=== PATIENT | female | born 1955 | race Caucasian/White ===

== ENCOUNTER 2021-03-24 13:43 | Emergency (ER) | payer MEDICARE, MEDICAID, SELFPAY ==
[2021-03-24 14:25] VITALS: BP 143/83; PULSE 60; RESP 18; TEMP 37.2; O2SAT 97; BMI 42.4
[2021-03-24 16:00] VITALS: BP 122/90; PULSE 62; RESP 98; O2SAT 96
[2021-03-24 17:00] VITALS: O2SAT 97
--- NOTE | 2021-03-24 17:14 | XRR_ITS ---
PROCEDURE INFORMATION: Exam: XR Chest Exam date and time: 03/24/2021 5:14 PM Age: 65 years old Clinical indication: Cough TECHNIQUE: Imaging protocol: XR of the chest. Views: 1 view. COMPARISON: CT Up Extremity wo LEFT* [id number] 06/07/2019 1:22 PM FINDINGS: Lungs: Focal airspace opacity in the peripheral right lung base. The left lung is clear. Pleural spaces: Unremarkable. No pleural effusion. No pneumothorax. Heart/Mediastinum: Unremarkable. No cardiomegaly. Bones/joints: Unremarkable. XR/XR chest 1V portable [id number] IMPRESSION: 1. Pneumonia versus atelectasis in the peripheral right lung base.
--- NOTE | 2021-03-24 17:19 | ED_ITS ---
HPI - COVID General: Chief Complaint: COVID symptoms Stated Complaint: SOB; COVID + Time Seen by Provider: 03/24/21 17:13 Triage information: Has fever, cough or shortness of breath . Exposure to COVID + person last 14 days History of Present Illness: HPI Narrative: Patient brought in Covid positive. Brought in by ambulance. Sent because patient says her daughter said she has grandkids at home and that she did not want her to be there with her. Said she is Covid positive. Patient has muscle aches has no shortness of breath. Has no diarrhea has been slightly nauseous. MD complaint: known COVID positive Prior covid testing: yes, results known COVID 19 common symptoms: positive cough, body aches and nausea; negative non- productive cough, productive cough, dyspnea, headache(s), throat pain or nasal congestion COVID 19 other sytmptoms: negative chest pain Onset (ago): day(s) Severity: mild COVID Results: No Data to Display Review of Systems Const: Reports: body aches Eyes: Denies: change in vision or blurry vision ENMT: Denies: throat pain or nasal congestion Card: Denies: chest pain or dyspnea on exertion Resp: Denies: dyspnea, productive cough or non-productive cough GI: Reports: nausea Musc: Denies: extremity pain Skin/Breast: Denies: rash Neuro: Denies: headache(s) Psych: Denies: anxiety or depression Festus/Lymph: Denies: easy bruising Physical Exam Const: COMMON NORMALS: no acute distress, average body habitus and patient oriented x3 HENMT: COMMON NORMALS: normocephalic HEAD & SCALP: normal to inspection and normocephalic FACE & SINUS: normal facial exam Eye: COMMON NORMALS: conjunctivae normal GENERAL EYE: appearance normal, both eyes and all related structures CONJUNCTIVA: Yes conjunctivae normal Neck/C-Spine: COMMON NORMALS: no JVD Chest: COMMONS NORMALS: normal inspection of the chest Resp: COMMON NORMALS: normal respiratory effort and clear to auscultation bilaterally AUSCULTATION: clear to auscultation bilaterally Cardio: COMMON NORMALS: no JVD, regular rate and regular rhythm RATE: regular rate RHYTHM: regular rhythm GI: COMMON NORMALS: Normal to inspection, nondistended, normoactive bowel sounds present Extremity: COMMON NORMALS: normal to inspection and full ROM Neuro: COMMON NORMALS: patient oriented x3 Course Vital Signs: Vital signs: Vital Signs Temperature 98.9 F 03/24/21 14:25 Pulse Rate 89 03/24/21 18:00 Respiratory Rate 18 03/24/21 18:00 Blood Pressure 159/75 03/24/21 18:00 Pulse Oximetry 94 03/24/21 18:00 MDM - COVID MDM Narrative: Medical decision making narrative: Vital signs are stable. X- ray was negative. Patient was in no distress at all. Was pleasant on visit with. Patient said she did not feel bad at all she was here because her daughter did not want her at home. COVID Results: No Data to Display Discharge Plan Discharge Patient Disposition: Home Clinical Impression: COVID-19 Condition: Stable Discharge Orders: Discharge ED (Routine); Ordered 03/24/21 Ordered By: Leonardo eFrro Discharge Diet: Usual diet Discharge Activity: Increase activity as tolerated Patient Instructions: Viral Syndrome (ED) Activity Restrictions/Additional Instructions: Follow-up with medical provider as directed. Take medications as prescribed. Return to the ER or your medical provider if condition worsens. Please read and understand discharge instructions. If any questions ask please. Coding Level of Care Code ED Radio Interference Supervisor for Kobe Fwemigdio Exam Comprehensive
[2021-03-24 18:00] VITALS: BP 159/75; PULSE 89; RESP 18; O2SAT 94
--- NOTE | 2021-03-24 18:18 | PC.NURSE ---
spoke with daughter converning the patient coming back home. She is angry and confrontational and hung up both times I spoke with her. She is aware that her mother will be returning home by Medicaid ride which may take between 1 and 3 hours. She states that if her mother leaves again she cannot return.
== END 2021-03-24 18:30 | disposition home or self-care (01) ==
PROVIDERS: Emergency Provider Nurse Practitioner Family
DX: U07.1 COVID-19 (principal)
CPT/HCPCS: 71045; 99282

== ENCOUNTER → 2021-09-16 13:05 | Outpatient (BNVA) | payer MEDICARE, MEDICAID, SELFPAY | PROVIDERS: PCP Nurse Practitioner Family; Visit Provider Internal Medicine | DX: E78.5 Hyperlipidemia, unspecified (principal); R06.02 Shortness of breath; I48.91 Unspecified atrial fibrillation | CPT/HCPCS: 80048; 83880 ==

== ENCOUNTER → 2021-09-17 13:35 | Outpatient (BNVA) | payer MEDICARE, MEDICAID, SELFPAY | PROVIDERS: PCP Nurse Practitioner Family; Referring Provider Nurse Practitioner Family; Visit Provider Internal Medicine | DX: E11.42 Type 2 diabetes mellitus with diabetic polyneuropathy (principal); E78.5 Hyperlipidemia, unspecified; Z79.4 Long term (current) use of insulin; Z87.891 Personal history of nicotine dependence | CPT/HCPCS: 99204 ==

== ENCOUNTER 2022-01-09 08:52 | Outpatient (CLI) | payer MEDICARE, MEDICAID, SELFPAY ==
--- NOTE | 2022-01-09 09:15 | USCV_ITS ---
Vicki Tolbert Age: 66 Gender: F : 1955 Exam Date: 01/09/2022 09:29 Ordering Phys: Humberto Jaquez M.D ([email or web address]) Technologist: Prosper Braun [place] [facility] [place] sob BP: 112 / 78 HR: Rhythm: Other Technical Quality: Adequate MEASUREMENTS (Male / Female) Normal Values 2D ECHO LV Diastolic Diameter PLAX 4.4 cm 4.2 - 5.9 / 3.9 - 5.3 cm LV Systolic Diameter PLAX 2.7 cm IVS Diastolic Thickness 1.1 cm 0.6 - 1.0 / 0.6 - 0.9 cm IVS Systolic Thickness 1.0 cm LVPW Diastolic Thickness 1.6 cm 0.6 - 1.0 / 0.6 - 0.9 cm LVPW Systolic Thickness 2.1 cm LVOT Diameter 2.0 cm LV Ejection Fraction 2D Teich 68.6 % LV Ejection Fraction MOD 2C 70.0 % LV Ejection Fraction 2C AL 71.0 % LA Diameter 4.1 cm LA Width 3.8 cm LA Height 5.8 cm RA Width 4.0 cm RA Height 5.1 cm Aorta at Sinotubular Diameter 2.1 cm IVC Diameter 2.6 cm M-MODE Aortic Annulus Diameter 2.6 cm LA Ao Ratio MM 1.7 MV E Point Septal Separation 0.8 cm DOPPLER AV Peak Velocity 274.0 cm/s LVOT Peak Velocity 81.0 cm/s AV Area Cont Eq vti 1.0 cm squared AV Area Cont Eq pk 1.0 cm squared MV Area PHT 5.1 cm squared Mitral E to A Ratio 2.8 MV E' Velocity 122.0 cm/s TR Peak Velocity 323.3 cm/s TR Peak Gradient 41.8 mmHg TR Mean Velocity 245.0 cm/s TR Mean Gradient 26.9 mmHg TR Velocity Time Integral 107.2 cm Right Atrial Pressure 8.0 mmHg Pulmonary Artery Systolic Pressu 49.8 mmHg RV Acceleration Time 0.1 s RV Ejection Time 0.4 s RV AcT/ET 0.3 FINDINGS Left Ventricle Normal left ventricular size. LV systolic function is normal with EF of 55-60%. No regional wall motion abnormalities. Diastolic function is abnormal Right Ventricle The right ventricle is normal in size and function. Right Atrium The right atrium is normal in size. Left Atrium The left atrium is dilated Mitral Valve Structurally normal mitral valve without significant stenosis or prolapse. There is mild mitral regurgitation. Aortic Valve Aortic valve is thickened and calcified. By continuity question, aortic valve area is 1 cm squared and mean gradient is 14 mmHg. This is consistent with moderate aortic stenosis. Mild aortic regurgitation is seen. Tricuspid Valve Structurally normal tricuspid valve without significant stenosis. Mild tricuspid regurgitation. RVSP is 45-50mmHg. This is consistent with moderate pulmonary hypertension Pulmonic Valve Structurally normal pulmonic valve without significant stenosis. There is mild pulmonic regurgitation. Pericardium Normal pericardium without effusion. Aorta Normal ascending aorta dimension. CONCLUSIONS LV systolic function is normal with EF of 55-60% Diastolic function is abnormal Left atrial dilation Mild mitral regurgitation Aortic valve is thickened and calcified. By continuity question, aortic valve area is 1 cm squared and mean gradient is 14 mmHg. This is consistent with moderate aortic stenosis. Mild aortic regurgitation is seen. Mild tricuspid regurgitation. RVSP is 45-50mmHg. This is consistent with moderate pulmonary hypertension Mild pulmonic regurgitation No comparison studies are available Humberto Jaquez MD (Electronically Signed) Final Date: 18 Jan 2022 20:29 S
== END 2022-01-09 08:53 | disposition home or self-care (01) ==
LOC: RAD 08:53
PROVIDERS: PCP Family Medicine; Visit Provider Internal Medicine
DX: R06.02 Shortness of breath (principal); R07.9 Chest pain, unspecified
CPT/HCPCS: 93306

== ENCOUNTER 2023-07-14 20:50 | Emergency (ER) | payer MEDICARE, MEDICAID, SELFPAY ==
[2023-07-14 20:51] VITALS: BP 139/58; PULSE 71; RESP 19; O2SAT 92; BMI 39.9
[2023-07-14] MEDS: metoclopramide 5 mg/mL SDV 2 mL 10 MG IVP (21:10)
[2023-07-14] MEDS: ondansetron 2 mg/ML SDV 2 mL 8 MG IVP (21:11)
[2023-07-14 21:20] LABS: Basophils # 0.1 10^3/uL (0.0-0.1); Basophils % 0.7 %; Eosinophils # 0.2 10^3/uL (0.0-0.8); Eosinophils % 1.4 %; Hematocrit 26.9 % (36-47); Lymphocytes # 1.3 10^3/uL (0.8-4.8); Lymphocytes % 11.3 %; Mean Corpuscular HGB Conc 29.7 g/dL (30-55); Mean Corpuscular Hemoglobin 24.8 pg (27-33); Mean Corpuscular Volume 83.5 fl (85-98); Mean Platelet Volume 9.8 fL (7.4-10.4); Monocytes # 0.4 10^3/uL (0.2-0.9); Monocytes % 3.9 %; Neutrophils # 9.29 10^3/uL (1.8-7.7); Neutrophils % 82.3 %; Nucleated Red Blood Cells % 0 %; Platelet Count 278 10^3/cmm (157-399); Red Blood Count 3.22 10^6/uL (3.85-5.65); Red Cell Distribution Width 19.6 % (12.1-15.1)
[2023-07-14 21:23] VITALS: BP 139/58; PULSE 69; RESP 23; O2SAT 93
[2023-07-14 21:37] LABS: Alanine Aminotransferase 12 U/L (0-33); Albumin Level 3.6 g/dL (3.5-5.2); Alkaline Phosphatase 123 U/L (35-105); Anion Gap 20.3 (5-19); Aspartate Amino Transferase 15 U/L (0-32); Blood Urea Nitrogen 35 mg/dL (8-23); Calcium 9.1 mg/dL (8.5-10.5); Carbon Dioxide 21 mmol/L (22-29); Chloride 100 mmol/L (98-107); Globulin 3.7 g/dL (1.3-4.6); Glomerular Filtration Rate 24.6 mL/min (90-130); Glucose 160 mg/dL (65-115); Lipase 63 U/L (13-60); Magnesium 2.2 mg/dL (1.7-2.3); Osmolality Calculated 295 mOsm/kg (285-295); Potassium 4.3 mmol/L (3.5-5.1); Sodium 137 mmol/L (136-145); Total Bilirubin 0.6 mg/dL (0.15-1.2); Total Protein 7.3 g/dL (6.6-8.7)
[2023-07-14 21:45] LABS: Add Urine Microscopic? YES; Bilirubin Urine Neg (Negative); Blood Urine 2+ (Negative); Glucose Urine UA 4+ (Normal); Ketones Urine Negative (Negative); Leukocyte Esterase Urine Negative (Negative); Nitrate Urine Negative (Negative); Protein Urine 1+ (Negative); Urine Appearance Clear (CLEAR); Urine Color Yellow (Yellow); Urobilinogen Urine Neg (Negative); pH Urine 5 (5-7)
[2023-07-14 21:46] LABS: Add Urine Culture? No; Amorphous Sediment Urine 1+ /hpf; Bacteria Urine 1+ /hpf; Mucus Urine 1+ /hpf; RBC Urine 0-4 /hpf (0-2); Squamous Epithelial Cell Urine 0-4 /hpf (0-5)
[2023-07-14] MEDS: sodium chloride 0.9% 1,000 ML 999 ML IV (21:52)
--- NOTE | 2023-07-14 21:53 | CTR_ITS ---
PROCEDURE INFORMATION: Exam: CT Abdomen And Pelvis Without Contrast Exam date and time: 07/14/2023 10:01 PM Age: 68 years old Clinical indication: Other: Hematuria; Additional info: N/v, hematuria, TECHNIQUE: Imaging protocol: Computed tomography of the abdomen and pelvis without contrast. Radiation optimization: All CT scans at this facility use at least one of these dose optimization techniques: automated exposure control; mA and/or kV adjustment per patient size (includes targeted exams where dose is matched to clinical indication); or iterative reconstruction. REPORTING DATA: Count of CT and Cardiac NM exams in prior 12 months: This patient has received 0 known CTs and 0 known cardiac nuclear medicine studies in the 12 months prior to the current study. COMPARISON: CR XR chest 1V portable [id number] 03/24/2021 5:17 PM RADIATION DOSE METRICS: Total DLP (mGy-cm): 1207.29 FINDINGS: Lungs: Small right pleural effusion. Right lung base atelectasis or scarring. Heart: The heart is mildly enlarged. Liver: Liver is large. No focal mass. Gallbladder and bile ducts: Absent gallbladder. Pancreas: Unremarkable with no suspicious mass. No ductal dilation. Spleen: The spleen is not enlarged. No suspicious mass is noted. Adrenal glands: Normal. No mass. Kidneys and ureters: No solid renal mass or hydronephrosis. Equivocal left upper renal hemorrhagic cyst. Stomach and bowel: Few tiny duodenal diverticula. Left colon is collapsed and not well studied. No small bowel obstruction, abscess or free air. Appendix: No evidence of appendicitis. Intraperitoneal space: Unremarkable. No free air. No suspicious fluid collection. Vasculature: Advanced diffuse vascular calcification noted. Lymph nodes: No enlarged lymph nodes. Urinary bladder: There is mild bladder wall thickening. Reproductive: Atrophic uterus. Bones/joints: Moderate spine DJD. Soft tissues: Tiny fat umbilical hernia. CT/CT abdomen pelvis wo con [id number] IMPRESSION: 1. No obstructive urolithiasis or obvious renal mass lesion noted. There may be mild cystitis. If hematuria persists, recommend CT urogram. 2. Multiple chronic findings above. COMMENTS: Consistent with the [employer]'s Incidental Findings Committee white paper (J Am Bassam Radiol 2018): Any incidental renal lesion less than 1 cm or classified as too small to characterize, or any incidental cystic renal lesion characterized as simple-appearing, is likely benign. No follow-up imaging is recommended for these lesions per consensus recommendations based on imaging criteria.
--- NOTE | 2023-07-14 21:56 | ED_ITS ---
HPI - Nausea/Vomiting/Diarrhea General: Chief complaint: Nausea/Vomiting/Diarrhea Stated complaint: N/V Time Seen by Provider: 07/14/23 20:53 History of Present Illness: Patient presents today to the ER [facility] with complaints of nausea vomiting starting today. Patient also complains of a productive cough and headache started 3 days ago. Patient states she coughs up white stuff. Patient is actively retching she states she is vomiting multiple times a day and does usually get sick in her stomach. Patient denies any fever abdominal pain or diarrhea. Patient normally wears oxygen at 2 to 3 L per nasal cannula which she is currently on 2 L satting in the mid 90s. Review of Systems General: Reports: 10 or more systems reviewed and unremarkable except in HPI and below PFSH ED PFSH: Medical History Arthritis Chronic renal failure COPD (chronic obstructive pulmonary disease) Depressive disorder Essential hypertension Gastroenteritis Hyperlipemia Neuropathy Type 2 diabetes mellitus Surgical History H/O: hysterectomy History of cholecystectomy Family History Mother Hypertension Social History Smoking and tobacco/nicotine status: former use of tobacco/nicotine Alcohol intake: never Substance/Drug Use: never Physical Exam Const: COMMON NORMALS: no acute distress, average body habitus, patient oriented x3, no limitations, healthy appearing, alert and well nourished HENMT: COMMON NORMALS: normocephalic, atraumatic, hearing grossly normal bilaterally, external ears normal, Normal external nose present, moist oral mucous membranes and oropharynx normal HEAD & SCALP: normocephalic and atraumatic NOSE: Normal external nose present EXTERNAL EAR: Yes external ears normal Neck/C-Spine: COMMON NORMALS: no JVD Chest: COMMONS NORMALS: normal inspection of the chest and normal palpation of entire chest wall Resp: COMMON NORMALS: normal respiratory effort, No retractions, No use of accessory muscles and clear to auscultation bilaterally AUSCULTATION: clear to auscultation bilaterally Cardio: COMMON NORMALS: no JVD, regular rate, regular rhythm, S1 normal heart sound present, S2 normal heart sound present, No gallops present (Cardio), No c licks present (Cardio), No murmurs present (Cardio) and No rub (Cardio) RATE: regular rate RHYTHM: regular rhythm HEART SOUNDS: S1 normal heart sound present and S2 normal heart sound present GI: COMMON NORMALS: Normal to inspection, nondistended, normoactive bowel sounds present, Soft to palpation, No hepatosplenomegaly present and no masses; negative for non-tender (Mildly diffusely tender) PALPATION: Yes Soft to palpation and Yes No hepatosplenomegaly present Neuro: COMMON NORMALS: patient oriented x3 SENSORIUM/ORIENTATION: Yes alert Course Vital Signs: Vital signs: Vital Signs Pulse Rate 72 07/14/23 22:52 Respiratory Rate 20 H 07/14/23 22:52 Blood Pressure 113/56 07/14/23 22:52 Pulse Oximetry 91 07/14/23 22:52 Oxygen Delivery Me thod Nasal Cannula 07/14/23 22:52 Oxygen Flow Rate 2 07/14/23 22:52 MDM - Nausea/Vomiting/Diarrhea Medical Decision Making Patient was given additional 8 mg Zofran and 10 of Reglan as well as 1 L normal saline while she was here. Patient did not vomit after she was given this medicine. Lab work was obtained which showed a hemoglobin of 8.0 hematocrit 26.9 upon talking to the nurse who talked to the daughter this is where the patient was at during her last hospital stay. Patient also had elevated BUN/creatinine at 35 and 2.0. Of abdomen pelvis CT scan was essentially benign. UA showed hematuria and 4+ glucose.. Is felt patient is stable at this time and has improved and will be discharged [facility] for further evaluation and treatment. Differential Diagnosis Likely gastroenteritis and dehydration; Unlikely traveler's diarrhea, food poisoning, clostridium difficile infection or drug-induced nausea and vomiting Medical Records I reviewed the patient's medical records. Lab Data I reviewed the patient's lab results. 07/14/23 21:16 07/14/23 21:16 Radiology Impressions Abdomen/Pelvis CT 07/14/23 21:53 IMPRESSION: 1. No obstructive urolithiasis or obvious renal mass lesion noted. There may be mild cystitis. If hematuria persists, recommend CT urogram. 2. Multiple chronic findings above. COMMENTS: Consistent with the [employer]'s Incidental Findings Committee white paper (J Am Bassam Radiol 2018): Any incidental renal lesion less than 1 cm or classified as too small to characterize, or any incidental cystic renal lesion characterized as simple-appearing, is likely benign. No follow-up imaging is recommended for these lesions per consensus recommendations based on imaging criteria. Laboratory Results WBC 11.30 10^3/uL (3.29-11.43) 07/14/23 21:16 RBC 3.22 10^6/uL (3.85-5.65) L 07/14/23 21:16 Hgb 8.00 g/dL (11.27-16.99) L 07/14/23 21:16 Hct 26.9 % (36-47) L 07/14/23 21:16 MCV 83.5 fl (85-98) L 07/14/23 21:16 MCH 24.8 pg (27-33) L 07/14/23 21:16 MCHC 29.7 g/dL (30-55) L 07/14/23 21:16 RDW 19.6 % (12.1-15.1) H 07/14/23 21:16 Plt Count 278 10^3/cmm (157-399) 07/14/23 21:16 MPV 9.8 fL (7.4-10.4) 07/14/23 21:16 Neut % (Auto) 82.3 % 07/14/23 21:16 Lymph % (Auto) 11.3 % 07/14/23 21:16 [place] % (Auto) 3.9 % 07/14/23 21:16 Eos % (Auto) 1.4 % 07/14/23 21:16 Baso % (Auto) 0.7 % 07/14/23 21:16 Neut # (Auto) 9.29 10^3/uL (1.8-7.7) H 07/14/23 21:16 Lymph # (Auto) 1.3 10^3/uL (0.8-4.8) 07/14/23 21:16 [place] # (Auto) 0.4 10^3/uL (0.2-0.9) 07/14/23 21:16 Eos # (Auto) 0.2 10^3/uL (0.0-0.8) 07/14/23 21:16 Baso # (Auto) 0.1 10^3/uL (0.0-0.1) 07/14/23 21:16 Nucleated RBC % (auto) 0 % 07/14/23 21:16 Nucleated RBCs # 0.0 /100WBC 07/14/23 21:16 Sodium 137 mmol/L (136-145) 07/14/23 21:16 Potassium 4.3 mmol/L (3.5-5.1) 07/14/23 21:16 Chloride 100 mmol/L (98-107) 07/14/23 21:16 Carbon Dioxide 21 mmol/L (22-29) L 07/14/23 21:16 Anion Gap 20.3 (5-19) H 07/14/23 21:16 BUN 35 mg/dL (8-23) H 07/14/23 21:16 Creatinine 2.0 mg/dL (0.5-0.9) H 07/14/23 21:16 GFR Calculation 24.6 mL/min (90-130) L 07/14/23 21:16 Glucose 160 mg/dL (65-115) H 07/14/23 21:16 Calculated Osmolality 295 mOsm/kg (285-295) 07/14/23 21:16 Calcium 9.1 mg/dL (8.5-10.5) 07/14/23 21:16 Magnesium 2.2 mg/dL (1.7-2.3) 07/14/23 21:16 Total Bilirubin 0.6 mg/dL (0.15-1.2) 07/14/23 21:16 AST 15 U/L (0-32) 07/14/23 21:16 ALT 12 U/L (0-33) 07/14/23 21:16 Alkaline Phosphatase 123 U/L (35-105) H 07/14/23 21:16 Total Protein 7.3 g/dL (6.6-8.7) 07/14/23 21:16 Albumin 3.6 g/dL (3.5-5.2) 07/14/23 21:16 Globulin 3.7 g/dL (1.3-4.6) 07/14/23 21:16 Lipase 63 U/L (13-60) H 07/14/23 21:16 Urine Color Yellow (Yellow) 07/14/23 21:31 Urine Appearance Clear (CLEAR) 07/14/23 21:31 Urine pH 5 (5-7) 07/14/23 21:31 Ur Specific Ferdinand 1.020 (1.005-1.030) 07/14/23 21:31 Urine Protein 1+ (Negative) H 07/14/23 21:31 Urine Glucose (UA) 4+ (Normal) H 07/14/23 21:31 Urine Ketones Negative (Negative) 07/14/23 21:31 Urine Blood 2+ (Negative) H 07/14/23 21:31 Urine Nitrate Negative (Negative) 07/14/23 21:31 Urine Bilirubin Neg (Negative) 07/14/23 21: Urine Urobilinogen Neg mg/dL (Negative) 07/14/23 21: Ur Leukocyte Esterase Negative (Negative) 07/14/23 21:31 Urine RBC 0-4 /hpf (0-2) H 07/14/23 21:31 Urine WBC None /hpf (0-5) 07/14/23 21:31 Ur Squamous Epith Cells 0-4 /hpf (0-5) H 07/14/23 21:31 Amorphous Sediment 1+ /hpf 07/14/23 21:31 Urine Bacteria 1+ /hpf (NONE) H 07/14/23 21:31 Urine Mucus 1+ /hpf 07/14/23 21:31 All radiology interpretation(s) finalized by discharge Discharge Plan Discharge Patient Disposition: Home Clinical Impression: Gastroenteritis Hematuria Qualifiers: Hematuria type: asymptomatic microscopic Qualified Code(s): R31.21 - Asymptomatic microscopic hematuria Chronic kidney disease Qualifiers: Chronic kidney disease stage: unspecified stage Qualified Code(s): N18.9 - Chronic kidney disease, unspecified Anemia Qualifiers: Anemia type: unspecified type Qualified Code(s): D64.9 - Anemia, unspecified Condition: Stable Prescriptions: No Action aspirin [Aspirin Childrens] 81 mg tablet,chewable 81 mg PO DAILY ferrous sulfate [Feosol] 325 mg (65 mg iron) tablet 325 mg PO DAILY albuterol sulfate [ProAir HFA] 90 mcg/actuation HFA aerosol inhaler 2 puff inhalation Q6H PRN ipratropium bromide 0.02 % solution 2.5 ml inhalation Q6H PRN albuterol sulfate 2.5 mg /3 mL (0.083 %) solution for nebulization 2.5 mg inhalation Q6H PRN All Day Allergy (cetirizine) 10 mg capsule 10 mg PO DAILY Victoza 3-Dez 0.6 mg/0.1 mL (18 mg/3 mL) pen injector 1.8 mg SUBCUT DAILY ropinirole 1 mg tablet 1 mg PO BID atorvastatin 20 mg tablet 20 mg PO DAILY amlodipine 5 mg tablet 5 mg PO DAILY Levemir FlexTouch U100 Insulin 100 unit/mL (3 mL) insulin pen 40 unit SUBCUT BID fluticasone propion-salmeterol [Advair Diskus] 250-50 mcg/dose blister with device 1 inh inhalation Q12H potassium gluconate 595 mg (99 mg) tablet 595 mg PO DAILY One-A-Day Women's 50 Plus 400-20 mcg tablet 1 tab PO DAILY ibuprofen 800 mg tablet 800 mg PO BID PRN gabapentin 300 mg capsule 300 mg PO BID metformin 500 mg tablet extended release 24 hr 1,000 mg PO DAILY Qty: 180 3RF Rx Instructions: Take two tablets by mouth daily. magnesium hydroxide [Milk of Magnesia] 400 mg/5 mL suspension 30 ml PO DAILY PRN alum-mag hydroxide-simeth [Mylanta Maximum Strength] 400-400-40 mg/5 mL suspension 10 ml PO TID PRN acetaminophen [Tylenol] 325 mg tablet 325 mg PO QID PRN furosemide 40 mg tablet 40 mg PO BID Qty: 180 3RF Eliquis 5 mg tablet 5 mg PO BID Qty: 180 3RF Discharge Orders: Discharge ED (Routine); Ordered 07/14/23 Ordered By: Lane Molina Referrals: Dwain Rivas [Primary Care Provider] - 1 week Patient Instructions: Hematuria - Female, Chronic Kidney Disease (ED), Acute Nausea and Vomiting (ED), Anemia (ED) Activity Restrictions/Additional Instructions: Please follow-up with your family practice physician within the next 7 to 10 days for further evaluation and treatment. Please drink plenty of fluids as to help with your hydration. Please continue take all your medicine as directed. Coding Level of Care Code ED Production Control Expediter for Kobe Guerrero
--- NOTE | 2023-07-14 22:46 | PC.NURSE ---
pts daughter called and states pt was taken to [facility] in [place], [place] and had to have stomach cauterized because of an upper GI bleed. pts hgb was 6 at the time, had blood transfusion and hgb increased to 8.3. pts daughter also states there are covid + residents on pts unit in custodial. pt was c/o SOB before cauterizing procedure, per pts daughter. pts daughter's callback number is [phone], okayed per pt to speak with daughter.
[2023-07-14 22:52] VITALS: BP 113/56; PULSE 72; RESP 20; O2SAT 91
[2023-07-14 23:50] VITALS: BP 113/56; PULSE 72; RESP 20; O2SAT 91
== END 2023-07-14 23:54 | disposition home or self-care (01) ==
PROVIDERS: Emergency Provider Emergency Medicine; PCP Family Medicine
DX: K52.9 Noninfective gastroenteritis and colitis, unspecified (principal); R31.21 Asymptomatic microscopic hematuria; D64.9 Anemia, unspecified; I12.9 Hypertensive chronic kidney disease with stage 1 through stage 4 chronic kidney disease, or unspecified chronic kidney disease; E11.22 Type 2 diabetes mellitus with diabetic chronic kidney disease; N18.9 Chronic kidney disease, unspecified; E78.5 Hyperlipidemia, unspecified; E11.40 Type 2 diabetes mellitus with diabetic neuropathy, unspecified; Z87.891 Personal history of nicotine dependence; Z79.82 Long term (current) use of aspirin; Z79.01 Long term (current) use of anticoagulants; Z79.4 Long term (current) use of insulin; Z79.84 Long term (current) use of oral hypoglycemic drugs
CPT/HCPCS: 74176; 80053; 81001; 83690; 83735; 85025; 96374; 96375; 99285; J2405; J2765; J7030

== ENCOUNTER 2023-07-20 19:14 | Observation (INO) | payer MEDICARE, MEDICAID, SELFPAY ==
[2023-07-20] VITALS (7 sets, daily range): BP systolic 151–167; BP diastolic 68–84; PULSE 56–65; RESP 16–20; TEMP 36.4–36.5; O2SAT 92–98; BMI 39.9
--- NOTE | 2023-07-20 19:16 | ECG_ITS ---
[facility] Test Date: 2023-07-20 Pat Name: Vicki Tolbert Department: Room: 276 Gender: Female Assistant Director: : 1955 Requested By: Bayron Ramos Order Number: [id number] Kerwni MD: Dorothy Adan M.D. Measurements Intervals [place] Rate: 59 P: 0 OR: 0 QRS: -29 QRSD: 107 T: 123 QT: 406 QTc: 405 Interpretive Statements ATRIAL FIBRILLATION WITH SLOW VENTRICULAR RESPONSE LOW QRS VOLTAGE [QRS DEFLECTION < 0.5/1.0 mV IN LIMB/CHEST LEADS] POSSIBLE ANTERIOR MYOCARDIAL INFARCTION , PROBABLY OLD [30 ms Q WAVE IN V3/V4, OR R < 0.2 mV IN V4] No previous ECG available for comparison Electronically Signed On 07-21-2023 1:50:15 EXHIBITION ORGANISER by Dorothy Adan M.D. [id number]
--- NOTE | 2023-07-20 19:17 | W.ED.GENADLT ---
HPI - General Adult General: Chief complaint: GI Bleed Stated complaint: positive hemocult Time Seen by Provider: 07/20/23 19:15 Source: patient Mode of arrival: ambulatory History of Present Illness: 68-year-old female who presents to the emergency room with complaints of Hemoccult positive stool. Patient resides in a custodial she is on Eliquis. She has been lightheaded dizzy and weak. She was seen about a week ago had a hemoglobin of 8. It has been an ongoing concern for bleeding for some time now she tells me she had an EGD and some sort of treatment done in [place] with up they had fixed the problem now she is having heme positive stools again and is feeling weak. She did not see any bright red blood per rectum. Onset (ago): minute(s) Relieving factors: none Exacerbating factors: none Associated symptoms: Reports malaise; Deny chest pain, confusion, cough, diaphoresis, decreased appetite, dyspnea, fevers/chills, headache(s), nausea, rash, palpitations, seizures, short of breath, syncope, vomiting or weakness Treatments prior to arrival: none Review of Systems Const: Reports: fatigue and malaise; Denies: fever(s), chills or diaphoresis Card: Denies: chest pain, palpitations or syncope Resp: Denies: dyspnea GI: Denies: abdominal pain, nausea or vomiting : Denies: dysuria, urinary frequency or urinary urgency Musc: Denies: neck pain or back pain Skin/Breast: Denies: rash Neuro: Denies: headache(s) or confusion PFS ED PFSH: Medical History (Updated 07/20/23 @ 20:59 by Curt Randhawa MD) Arthritis Chronic renal failure COPD (chronic obstructive pulmonary disease) COVID-19 Depressive disorder DM type 2 with diabetic peripheral neuropathy Essential hypertension Gastroenteritis Hematuria Hyperlipemia Neuropathy Type 2 diabetes mellitus Surgical History H/O: hysterectomy History of cholecystectomy Family History Mother Hypertension Social History Smoking and tobacco/nicotine status: former use of tobacco/nicotine Alcohol intake: never Substance/Drug Use: never Physical Exam Const: GENERAL APPEARANCE: cooperative and comfortable ORIENTATION/CONSCIOUSNESS: Yes awake, Yes oriented to person, Yes oriented to place and Yes oriented to time HENMT: COMMON NORMALS: normocephalic, atraumatic and hearing grossly normal bilaterally HEAD & SCALP: normocephalic and atraumatic Resp: COMMON NORMALS: normal respiratory effort, No retractions, No use of accessory muscles and clear to auscultation bilaterally AUSCULTATION: clear to auscultation bilaterally Cardio: COMMON NORMALS: regular rate, regular rhythm and No murmurs present (Cardio) RATE: regular rate RHYTHM: regular rhythm GI: COMMON NORMALS: Soft to palpation and No hepatosplenomegaly present AUSCULTATION: Yes normoactive bowel sounds PALPATION: Yes Soft to palpation, No Tenderness to palpation present (GI), No Guarding due to palpation present (GI) and Yes No hepatosplenomegaly present Extremity: COMMON NORMALS: normal to inspection, capillary refill normal, no clubbing, cyanosis or edema, no calf tenderness and no pedal edema Neuro: SENSORIUM/ORIENTATION: Yes oriented to person, Yes oriented to place and Yes oriented to time Skin: COMMON NORMALS: no rashes or lesions noted GENERAL SKIN EXAM: no rashes or lesions noted Course Vital Signs: Vital signs: Vital Signs Temperature 97.6 F 07/20/23 19:16 Pulse Rate 62 07/20/23 19:16 Respiratory Rate 18 07/20/23 19:16 Blood Pressure 167/68 07/20/23 20:21 Pulse Oximetry 98 07/20/23 20:21 Oxygen Delivery Me thod Room Air 07/20/23 20:21 MDM - General Adult Medical Decision Making Acute anemia with hemoglobin down to 6 6 last week was 8. Will admit discussed Dr. Miguel montalvo also consult general surgery for EGD we will get records from [place] for previous EGD. Medical Records I reviewed the patient's medical records. Lab Data I reviewed the patient's lab results. 07/20/23 19:46 07/20/23 19:46 Laboratory Results WBC 8.73 10^3/uL (3.29-11.43) 07/20/23 19:46 RBC 2.65 10^6/uL (3.85-5.65) L 07/20/23 19:46 Hgb 6.60 g/dL (11.27-16.99) L 07/20/23 19:46 Hct 22.7 % (36-47) L 07/20/23 19:46 MCV 85.7 fl (85-98) 07/20/23 19:46 MCH 24.9 pg (27-33) L 07/20/23 19:46 MCHC 29.1 g/dL (30-55) L 07/20/23 19:46 RDW 19.8 % (12.1-15.1) H 07/20/23 19:46 Plt Count 155 10^3/cmm (157-399) L 07/20/23 19:46 MPV 10.3 fL (7.4-10.4) 07/20/23 19:46 Neut % (Auto) 65.2 % 07/20/23 19:46 Lymph % (Auto) 20.3 % 07/20/23 19:46 Laurel % (Auto) 9.7 % 07/20/23 19:46 Eos % (Auto) 3.4 % 07/20/23 19:46 Baso % (Auto) 0.7 % 07/20/23 19:46 Neut # (Auto) 5.69 10^3/uL (1.8-7.7) 07/20/23 19:46 Lymph # (Auto) 1.8 10^3/uL (0.8-4.8) 07/20/23 19:46 Laurel # (Auto) 0.9 10^3/uL (0.2-0.9) 07/20/23 19:46 Eos # (Auto) 0.3 10^3/uL (0.0-0.8) 07/20/23 19:46 Baso # (Auto) 0.1 10^3/uL (0.0-0.1) 07/20/23 19:46 Nucleated RBC % (auto) 0 % 07/20/23 19:46 Nucleated RBCs # 0.0 /100WBC 07/20/23 19:46 Sodium 134 mmol/L (136-145) L 07/20/23 19:46 Potassium 4.7 mmol/L (3.5-5.1) 07/20/23 19:46 Chloride 98 mmol/L (98-107) 07/20/23 19:46 Carbon Dioxide 24 mmol/L (22-29) 07/20/23 19:46 Anion Gap 16.7 (5-19) 07/20/23 19:46 BUN 47 mg/dL (8-23) H 07/20/23 19:46 Creatinine 2.1 mg/dL (0.5-0.9) H 07/20/23 19:46 GFR Calculation 23.3 mL/min (90-130) L 07/20/23 19:46 Glucose 267 mg/dL (65-115) H 07/20/23 19:46 Calculated Osmolality 300 mOsm/kg (285-295) H 07/20/23 19:46 Calcium 8.8 mg/dL (8.5-10.5) 07/20/23 19:46 Total Bilirubin 0.3 mg/dL (0.15-1.2) 07/20/23 19:46 AST 12 U/L (0-32) 07/20/23 19:46 ALT 9 U/L (0-33) 07/20/23 19:46 Alkaline Phosphatase 131 U/L (35-105) H 07/20/23 19:46 Total Protein 6.7 g/dL (6.6-8.7) 07/20/23 19:46 Albumin 3.6 g/dL (3.5-5.2) 07/20/23 19:46 Globulin 3.1 g/dL (1.3-4.6) 07/20/23 19:46 Crossmatch See Detail 07/20/23 20:52 No radiology studies performed this visit Discharge Plan Discharge Patient Disposition: Admitted As Inpatient Clinical Impression: Anemia, Atrial fibrillation Condition: Stable Coding Level of Care Code ED Sleep Medicine Physician for Kobe Guerrero
[2023-07-20 19:59] LABS: Basophils # 0.1 10^3/uL (0.0-0.1); Basophils % 0.7 %; Eosinophils # 0.3 10^3/uL (0.0-0.8); Eosinophils % 3.4 %; Hematocrit 22.7 % (36-47); Lymphocytes # 1.8 10^3/uL (0.8-4.8); Lymphocytes % 20.3 %; Mean Corpuscular HGB Conc 29.1 g/dL (30-55); Mean Corpuscular Hemoglobin 24.9 pg (27-33); Mean Corpuscular Volume 85.7 fl (85-98); Mean Platelet Volume 10.3 fL (7.4-10.4); Monocytes # 0.9 10^3/uL (0.2-0.9); Monocytes % 9.7 %; Neutrophils # 5.69 10^3/uL (1.8-7.7); Neutrophils % 65.2 %; Nucleated Red Blood Cells % 0 %; Platelet Count 155 10^3/cmm (157-399); Red Blood Count 2.65 10^6/uL (3.85-5.65); Red Cell Distribution Width 19.8 % (12.1-15.1); White Blood Count 8.73 10^3/uL (3.29-11.43)
[2023-07-20 20:12] LABS: Alanine Aminotransferase 9 U/L (0-33); Albumin Level 3.6 g/dL (3.5-5.2); Alkaline Phosphatase 131 U/L (35-105); Anion Gap 16.7 (5-19); Aspartate Amino Transferase 12 U/L (0-32); Blood Urea Nitrogen 47 mg/dL (8-23); Calcium 8.8 mg/dL (8.5-10.5); Carbon Dioxide 24 mmol/L (22-29); Chloride 98 mmol/L (98-107); Globulin 3.1 g/dL (1.3-4.6); Glomerular Filtration Rate 23.3 mL/min (90-130); Glucose 267 mg/dL (65-115); Osmolality Calculated 300 mOsm/kg (285-295); Potassium 4.7 mmol/L (3.5-5.1); Sodium 134 mmol/L (136-145); Total Bilirubin 0.3 mg/dL (0.15-1.2); Total Protein 6.7 g/dL (6.6-8.7)
--- NOTE | 2023-07-20 20:55 | P.HP_ITS ---
Providers/Chief Complaint Admitting Physician: Curt Randhawa Primary Care Provider: Dwain Rivas Chief Complaint: positive hemocult History of Present Illness Vicki Tolbert is a 68 year old female with a past medical history significant for atrial fibrillation on apixaban, COPD, chronic kidney disease, type 2 diabetes mellitus, and anemia with recent GI bleed with presents to the emergency department with GI bleeding. Patient appears to be a very poor historian. She states she was treated at [facility] about 9 days ago for GI bleeding. She states she underwent endoscopy which she thinks was both EGD and colonoscopy but cannot recall about the colonoscopy for sure. She states the bleeding found and treated. She cannot recall what or where findings were found. Patient states she started bleeding again per rectum about 3 days ago. She does have a history of atrial fibrillation. Current home medications list (not yet updated) does show apixaban, aspirin, and ibuprofen. She is not aware of her medications. Review of Systems Narrative: A complete review of systems was obtained and is negative except as stated in HPI. Medications/Allergies Home Medications Medication Instructions Recorded Confirmed Last Taken Type albuterol sulfate 2.5 mg/3 mL 2.5 mg inhalation Q6H PRN 09/16/21 12/20/21 Unknown History (0.083 %) solution for nebulization albuterol sulfate 90 mcg/actuation 2 puff inhalation Q6H PRN 09/16/21 12/20/21 Unknown History aerosol inhaler (ProAir HFA) amlodipine 5 mg tablet 5 mg PO DAILY 09/16/21 12/20/21 Unknown History aspirin 81 mg chewable tablet 81 mg PO DAILY 09/16/21 12/20/21 Unknown History (Aspirin Childrens) atorvastatin 20 mg tablet 20 mg PO DAILY 09/16/21 12/20/21 Unknown History cetirizine 10 mg capsule (All Day 10 mg PO DAILY 09/16/21 12/20/21 Unknown History Allergy (cetirizine)) ferrous sulfate 325 mg (65 mg 325 mg PO DAILY 09/16/21 12/20/21 Unknown History iron) tablet (Feosol) fluticasone 250 mcg-salmeterol 50 1 inh inhalation Q12H 09/16/21 12/20/21 Unknown History mcg/dose blistr powdr for inhalation (Advair Diskus) gabapentin 300 mg capsule 300 mg PO BID 09/16/21 12/20/21 Unknown History ibuprofen 800 mg tablet 800 mg PO BID PRN 09/16/21 12/20/21 Unknown History insulin detemir U-100 100 unit/mL 40 unit SUBCUT BID 09/16/21 12/20/21 Unknown History (3 mL) subcutaneous pen (Levemir FlexTouch U-100 Insulin) ipratropium bromide 0.02 % 2.5 ml inhalation Q6H PRN 09/16/21 12/20/21 Unknown History solution for inhalation liraglutide 0.6 mg/0.1 mL (18 mg/3 1.8 mg SUBCUT DAILY 09/16/21 12/20/21 Unknown History mL) subcutaneous pen injector (Victoza 3-Dez) plgfgodiulxf-nhvvdaze-ggdojcv-folic 1 tab PO DAILY 09/16/21 12/20/21 Unknown History acid 400 mcg-vit K1 20 mcg tablet (One-A-Day Women's 50 Plus) potassium gluconate 595 mg (99 mg) 595 mg PO DAILY 09/16/21 12/20/21 Unknown History tablet ropinirole 1 mg tablet 1 mg PO BID 09/16/21 12/20/21 Unknown History metformin 500 mg tablet,extended 1,000 mg PO DAILY #180 tabs 09/17/21 12/20/21 Unknown Rx release 24 hr furosemide 40 mg tablet 40 mg PO BID #180 tabs 09/20/21 12/20/21 Unknown Rx acetaminophen 325 mg tablet 325 mg PO QID PRN 10/22/21 12/20/21 Unknown History (Tylenol) aluminum-mag hydroxide-simethicone 10 ml PO TID PRN 10/22/21 12/20/21 Unknown History 400 mg-400 mg-40 mg/5 mL oral susp (Mylanta Maximum Strength) magnesium hydroxide 400 mg/5 mL 30 ml PO DAILY PRN 10/22/21 12/20/21 Unknown History oral suspension (Milk of Magnesia) apixaban 5 mg tablet (Eliquis) 5 mg PO BID #180 tabs 09/30/22 Unknown Rx Allergies Allergy/AdvReac Type Severity Reaction Status Date / Time No Known Allergies Allergy Verified 07/20/23 19:23 PFSH Acute PFSH: Medical History Arthritis Chronic renal failure COPD (chronic obstructive pulmonary disease) COVID-19 Depressive disorder DM type 2 with diabetic peripheral neuropathy Essential hypertension Gastroenteritis Hematuria Hyperlipemia Neuropathy Type 2 diabetes mellitus Surgical History H/O: hysterectomy History of cholecystectomy Family History Mother Hypertension Social History Smoking and tobacco/nicotine status: former use of tobacco/nicotine Alcohol intake: never Substance/Drug Use: never Vitals/I&O/Wt Last Vital Signs Temp 97.6 F 07/20/23 19:16 Pulse 62 07/20/23 19:16 Resp 18 07/20/23 19:16 BP 167/68 07/20/23 20:21 Pulse Ox 98 07/20/23 20:21 O2 Del Method Room Air 07/20/23 20:21 Weight last 48 hrs Weight 108.862 kg Physical Exam Narrative: General: Patient is awake. Head: Normocephalic. Atraumatic. EOM intact. Pale mucous membranes. Neck: No JVD. Cardiovascular: RRR. No gallops. No murmurs. Non-pitting lower extremity edema. Lungs: Clear to auscultation, no use of accessory muscles, no crackles or wheezes. Skin: No jaundice. No rashes. Abdomen: Normal bowel sounds, abdomen soft and nontender. Extremities: No cyanosis or clubbing. Musculoskeletal: No erythematous joints. Neurological: Moves all 4 extremities. No myoclonus. Data 07/20/23 19:46 07/20/23 19:46 A&P Assessment and plan (1) Anemia: Acute on chronic anemia secondary to acute GI bleed Obtain records from [facility], likely will have to be in the morning Hold apixaban Hold aspirin No NSAIDs Start pantoprazole 40 mg IVP Q12H NPO General surgery consulted Trend hemoglobin Transfusing pRBC, monitor for fluid overload Qualifiers: Anemia type: unspecified type Qualified Code(s): D64.9 - Anemia, unspec ified (2) Essential hypertension: BP is currently elevated, however at risk of hypotension w/ GIB Monitor BP closely (3) COPD (chronic obstructive pulmonary disease): Not in exacerbation Breathing treatments as needed (4) Type 2 diabetes mellitus: Hold home metformin Formulatory long acting insulin at reduced rate SSI (5) Atrial fibrillation: Hold anticoagulation due to GI bleeding Telemetry monitoring for GIB Not on rate control agent (6) Chronic kidney disease: Baseline Cr is 2.0 Monitor Qualifiers: Chronic kidney disease stage: unspecified stage Qualified Code(s): N18.9 - Chronic kidney disease, unspecified Plan DVT ppx: SCD Attestations Medical Necessity Statement*: Patient presents with GI bleed with associated acute blood loss anemia with expected hospitalization not to cross two midnights for transfusion, serial labs and general surgery evaluation. Coding Level of Care Code Acute Code for g Fwd Diagnoses Anemia D64.9 Anemia type: unspecified type Essential hypertension I10 COPD (chronic obstructive pulmonary disease) J44.9 Type 2 diabetes mellitus E11.9 Atrial fibrillation I48.91 Chronic kidney disease N18.9 Chronic kidney disease stage: unspecified stage
[2023-07-20] MEDS: pantoprazole 40 mg SDV IVP (21:28)
--- NOTE | 2023-07-20 22:35 | PM.HP ---
Providers/Chief Complaint Admitting Physician: Curt Randhawa MD Primary Care Provider: Dwain Rivas Chief Complaint: positive hemocult History of Present Illness Vicki Tolbert is a 68 year old female Medications/Allergies Home Medications Medication Instructions Recorded Confirmed Last Taken Type albuterol sulfate 2.5 mg/3 mL 2.5 mg inhalation Q6H PRN 09/16/21 12/20/21 Unknown History (0.083 %) solution for nebulization albuterol sulfate 90 mcg/actuation 2 puff inhalation Q6H PRN 09/16/21 12/20/21 Unknown History aerosol inhaler (ProAir HFA) amlodipine 5 mg tablet 5 mg PO DAILY 09/16/21 12/20/21 Unknown History aspirin 81 mg chewable tablet 81 mg PO DAILY 09/16/21 12/20/21 Unknown History (Aspirin Childrens) atorvastatin 20 mg tablet 20 mg PO DAILY 09/16/21 12/20/21 Unknown History cetirizine 10 mg capsule (All Day 10 mg PO DAILY 09/16/21 12/20/21 Unknown History Allergy (cetirizine)) ferrous sulfate 325 mg (65 mg 325 mg PO DAILY 09/16/21 12/20/21 Unknown History iron) tablet (Feosol) fluticasone 250 mcg-salmeterol 50 1 inh inhalation Q12H 09/16/21 12/20/21 Unknown History mcg/dose blistr powdr for inhalation (Advair Diskus) gabapentin 300 mg capsule 300 mg PO BID 09/16/21 12/20/21 Unknown History ibuprofen 800 mg tablet 800 mg PO BID PRN 09/16/21 12/20/21 Unknown History insulin detemir U-100 100 unit/mL 40 unit SUBCUT BID 09/16/21 12/20/21 Unknown History (3 mL) subcutaneous pen (Levemir FlexTouch U-100 Insulin) ipratropium bromide 0.02 % 2.5 ml inhalation Q6H PRN 09/16/21 12/20/21 Unknown History solution for inhalation liraglutide 0.6 mg/0.1 mL (18 mg/3 1.8 mg SUBCUT DAILY 09/16/21 12/20/21 Unknown History mL) subcutaneous pen injector (Victoza 3-Dez) fkxqycxfjcar-frawtqhd-jhrqqdo-folic 1 tab PO DAILY 09/16/21 12/20/21 Unknown History acid 400 mcg-vit K1 20 mcg tablet (One-A-Day Women's 50 Plus) potassium gluconate 595 mg (99 mg) 595 mg PO DAILY 09/16/21 12/20/21 Unknown History tablet ropinirole 1 mg tablet 1 mg PO BID 09/16/21 12/20/21 Unknown History metformin 500 mg tablet,extended 1,000 mg PO DAILY #180 tabs 09/17/21 12/20/21 Unknown Rx release 24 hr furosemide 40 mg tablet 40 mg PO BID #180 tabs 09/20/21 12/20/21 Unknown Rx acetaminophen 325 mg tablet 325 mg PO QID PRN 10/22/21 12/20/21 Unknown History (Tylenol) aluminum-mag hydroxide-simethicone 10 ml PO TID PRN 10/22/21 12/20/21 Unknown History 400 mg-400 mg-40 mg/5 mL oral susp (Mylanta Maximum Strength) magnesium hydroxide 400 mg/5 mL 30 ml PO DAILY PRN 10/22/21 12/20/21 Unknown History oral suspension (Milk of Magnesia) apixaban 5 mg tablet (Eliquis) 5 mg PO BID #180 tabs 09/30/22 Unknown Rx Allergies Allergy/AdvReac Type Severity Reaction Status Date / Time No Known Allergies Allergy Verified 07/20/23 19:23 PFSH Acute PFSH: Medical History (Updated 07/20/23 @ 20:59 by Curt Randhawa MD) Arthritis Chronic renal failure COPD (chronic obstructive pulmonary disease) COVID-19 Depressive disorder DM type 2 with diabetic peripheral neuropathy Essential hypertension Gastroenteritis Hematuria Hyperlipemia Neuropathy Type 2 diabetes mellitus Surgical History H/O: hysterectomy History of cholecystectomy Family History Mother Hypertension Social History Smoking and tobacco/nicotine status: former use of tobacco/nicotine Alcohol intake: never Substance/Drug Use: never Vitals/I&O/Wt Last Vital Signs Temp 97.7 F 07/20/23 22:26 Pulse 56 L 07/20/23 22:26 Resp 20 H 07/20/23 22:26 BP 158/81 07/20/23 22:26 Pulse Ox 96 07/20/23 22:26 O2 Del Method Nasal Cannula 07/20/23 22:26 O2 Flow Rate 2 07/20/23 22:26 Weight last 48 hrs Weight 108.862 kg Data 07/20/23 19:46 07/20/23 19:46 Coding Level of Care Code Acute Code for Chg Fwd Diagnoses
[2023-07-21] VITALS (26 sets, daily range): BP systolic 129–190; BP diastolic 64–95; PULSE 53–89; RESP 15–24; TEMP 36.1–36.6; O2SAT 92–100
[2023-07-21] MEDS: pantoprazole 40 mg SDV IVP ×2 (02:26→12:08)
--- NOTE | 2023-07-21 02:59 | PC.NURSE ---
voided times one. missed the hat, unable to get accurate measurement
[2023-07-21 06:12] LABS: Basophils # 0.1 10^3/uL (0.0-0.1); Basophils % 0.7 %; Eosinophils # 0.3 10^3/uL (0.0-0.8); Eosinophils % 3.5 %; Hematocrit 26.4 % (36-47); Lymphocytes # 1.6 10^3/uL (0.8-4.8); Lymphocytes % 19.7 %; Mean Corpuscular HGB Conc 29.5 g/dL (30-55); Mean Corpuscular Volume 84.6 fl (85-98); Mean Platelet Volume 10.8 fL (7.4-10.4); Monocytes # 0.8 10^3/uL (0.2-0.9); Monocytes % 10.3 %; Neutrophils # 5.24 10^3/uL (1.8-7.7); Neutrophils % 65.3 %; Nucleated Red Blood Cells % 0 %; Platelet Count 136 10^3/cmm (157-399); Red Blood Count 3.12 10^6/uL (3.85-5.65); Red Cell Distribution Width 18.6 % (12.1-15.1); White Blood Count 8.03 10^3/uL (3.29-11.43)
[2023-07-21 06:33] LABS: Anion Gap 16.4 (5-19); Blood Urea Nitrogen 46 mg/dL (8-23); Calcium 8.9 mg/dL (8.5-10.5); Carbon Dioxide 24 mmol/L (22-29); Chloride 101 mmol/L (98-107); Glomerular Filtration Rate 27.8 mL/min (90-130); Glucose 198 mg/dL (65-115); Magnesium 2.6 mg/dL (1.7-2.3); Osmolality Calculated 301 mOsm/kg (285-295); Potassium 4.4 mmol/L (3.5-5.1); Sodium 137 mmol/L (136-145)
--- NOTE | 2023-07-21 06:56 | XR_ITS ---
WS: [id number] Exam: XR abdomen 1V* [id number] Date/Time of Exam: 07/21/2023 7:27 AM Reason For Exam: Abdominal pain No bowel obstruction or free air. Signs of prior cholecystectomy. No sign of organ enlargement. Bony structures are intact. IMPRESSION: 1. No acute abdominal process.
--- NOTE | 2023-07-21 06:56 | XR_ITS ---
WS: [id number] Exam: XR chest 1V [id number] Date/Time of Exam: 07/21/2023 7:28 AM Reason For Exam: pre-endoscopy Comparison 03/24/2021. There is infiltrate and atelectasis in the RIGHT lower lobe. Small RIGHT basal pleural effusion. Hear t size is top limits normal. The LEFT lung is clear. No pneumothorax. The mediastinum is normal in co ntour. IMPRESSION: 1. RIGHT lower lobe infiltrate and atelectasis and small RIGHT basal pleural effusion.
[2023-07-21 08:06] LABS: Glucose Point of Care 191 mg/dL (70-110)
--- NOTE | 2023-07-21 08:59 | PC.CHAP ---
Pastoral Care Encounter/Spiritual Assessment Type of Contact [] Declined field mechanic visit [] Patient/Family/Request visit [] Outpatient visit [] Follow-up visit [] Physician referral [] Code/Alert [x] Routine visit [] Staff referral [] Actively dying [] Patient sleeping [] Family support [] [] Out of room [] Palliative care [] [] Receiving care in room [] Pre-surgical visit [] Trauma [] Long length of stay [] ICU visit [] Other: Relational/Emotional Strength [x] Patient feels connected with others/family/visitors/staff [] Distress [] Loneliness/isolation [] Abandonment Spirituality of Patient [x] Person of Hellen [] Attends Confucianism of their Hellen x[] Believes in Prayer [] Reads Bible or Anabaptist materials [] There are Spiritual issues to be addressed Associate Professor Of Library Media Interventions [x] Prayer [x] Active listening [] Non-anxious presence [x] Spiritual/emotional support [] Crisis/trauma care [] Spiritual counseling [] Bereavement support [] Provided bereavement packet [] Provided Bible/devotional materials [] Provided toy/stuffed animal, coloring book to patient or family member [] Provided Communion [] Anointing/Prue [] Salvation [x] Completed spiritual assessment [] Other: Impact on Illness or Injury [] Angry [] Fearful [] Anxious [] Often cries [] Exhaustion [] Unable to work [] Unable to attend confucianist [] Unable to walk/stand [] Unable to read [] Unable to drive [] Unable to eat/drink [] Unable to sleep [] Unable to be with family [] Patient intubated [] Other: Summary Time spent with patient 5 min
--- NOTE | 2023-07-21 08:59 | PC.PHAR ---
pt is from [facility]-medications entered are from the [facility] they sent with the pt-pts nov has basaglar 30 units hs,lantus 30 units hs,amlodipine 5mg daily,lisinopril 5mg daily,prilosec 20mg daily all dced 07/04/23-zyvox 600mg bid ext shows filled 07/06/23 10d/s-nov shows wegovy dced 07/15/23
--- NOTE | 2023-07-21 09:45 | ANES.PREANE2 ---
Pre-Anesthetic Assessment Height/Weight: Height 1.65 m Weight 121.563 kg Temp Pulse Resp BP Pulse Ox O2 Del Method O2 Flow Rate 97.9 F 89 16 160/65 96 Nasal Cannula 2 07/21/23 08:00 07/21/23 08:40 07/21/23 08:40 07/21/23 08:00 07/21/23 08:40 07/21/23 08:40 07/21/23 08:40 Preop Diagnosis: GI bleed Operation Date: 07/21/23 11:50 Proposed Procedures p EGD(Not Applicable) - Marvel Stratton MD Familial anesthetic complications: None Was Beta Mario taken within 24 hours: N/A Was Clonidine taken within 24 hours: N/A Social No alcohol and No tobacco Exam alert, oriented x 3 and clear to auscultation bilaterally Afib Airway Submandibular: within normal limits Cervical ROM: within normal limits Mallampati: Class III Dentition: false History/ROS No significant history except as noted and No significant complaints Pulmonary Chronic Obstructive Pulmonary Disease, Cough, Exertional Dyspnea and Sleep Apnea CV/HEM Atrial Fibrillation, Anemia, Coronary Artery Disease, Congestive Heart Failure, Hypertension and Murmur CONCLUSIONS ?LV systolic function is normal with EF of 55-60% ?Diastolic function is abnormal ?Left atrial dilation ?Mild mitral regurgitation ?Aortic valve is thickened and calcified.? By continuity ?question, aortic valve area is 1 cm squared and mean gradient is 14 ?mmHg.? This is consistent with moderate aortic stenosis.? Mild ?aortic regurgitation is seen. ?Mild tricuspid regurgitation.? RVSP is 45-50mmHg. This is ?consistent with moderate pulmonary hypertension? ?Mild pulmonic regurgitation ?No comparison studies are available Chronic Renal Insufficiency Hepatic None reported GI Gastroesophageal Reflux Disease (None today) and Peptic Ulcer Disease Metabolic Diabetes Mellitus, Hyperlipidemia and Thyroid Disease [facility] [place] Rheumatoid Arthritis Neuropsych Neuropathy and Seizure (As a kid) Anesthetic Plan ASA status: 4 Anesthesia: Anesthesia Evaluation, General and MAC Risk of > 500 ml blood loss (7ml/kg in children): No Medications/Allergies Home Medications Medication Instructions Recorded Confirmed Last Taken Type albuterol sulfate 2.5 mg/3 mL 2.5 mg inhalation Q4H PRN 09/16/21 07/21/23 Unknown History (0.083 %) solution for nebulization Shortness Of Breath aspirin 81 mg chewable tablet 81 mg PO QAM 09/16/21 07/21/23 Unknown History (Aspirin Childrens) atorvastatin 20 mg tablet 20 mg PO BEDTIME 09/16/21 07/21/23 Unknown History gabapentin 300 mg capsule 300 mg PO BID 09/16/21 07/21/23 Unknown History ropinirole 1 mg tablet 1 mg PO BID 09/16/21 07/21/23 Unknown History acetaminophen 325 mg tablet 650 mg PO Q4H PRN Pain 10/22/21 07/21/23 Unknown History (Tylenol) magnesium hydroxide 400 mg/5 mL 30 ml PO .EVERY 3RD DAY PRN 10/22/21 07/21/23 Unknown History oral suspension (Milk of Magnesia) Constipation apixaban 5 mg tablet (Eliquis) 5 mg PO BID #180 tabs 09/30/22 07/21/23 Unknown Rx aluminum-mag hydroxide-simethicone 30 ml PO .EVERY 2 HOURS PRN 07/21/23 07/21/23 Unknown History 200 mg-200 mg-20 mg/5 mL oral susp Indigestion bisacodyl 10 mg rectal suppository 10 mg [place] .AFTER MOM IF NO BM PRN 07/21/23 07/21/23 Unknown History (Dulcolax (bisacodyl)) if tabs refused bisacodyl 5 mg tablet,delayed 20 mg PO DAILY PRN after mom if no 07/21/23 07/21/23 Unknown History release (Dulcolax (bisacodyl)) bm budesonide-formoterol HFA 160 2 puff inhalation BID 07/21/23 07/21/23 Unknown History mcg-4.5 mcg/actuation aerosol inhaler cetirizine 10 mg tablet (Zyrtec) 10 mg PO QAM 07/21/23 07/21/23 Unknown History dapagliflozin propanediol 10 mg 10 mg PO QAM 07/21/23 07/21/23 Unknown History tablet (Farxiga) ergocalciferol (vitamin D2) 1,250 50,000 unit PO Q7D 07/21/23 07/21/23 Unknown History mcg (50,000 unit) capsule furosemide 80 mg tablet (Lasix) 80 mg PO QAM 07/21/23 07/21/23 Unknown History guaifenesin 100 mg/5 mL oral liquid 100 mg PO Q6H PRN Cough 07/21/23 07/21/23 Unknown History liraglutide 0.6 mg/0.1 mL (18 mg/3 1.8 mg SUBCUT QAM 07/21/23 07/21/23 Unknown History mL) subcutaneous pen injector (Victoza 3-Dez) loperamide 2 mg tablet (Imodium See Rx Instructions .Route .COMPLEX 07/21/23 07/21/23 Unknown History A-D) magnesium citrate See Rx Instructions .Route .COMPLEX 07/21/23 07/21/23 Unknown History magnesium oxide 400 mg PO QAM 07/21/23 07/21/23 Unknown History naloxone 0.4 mg/mL injection See Rx Instructions .Route .COMPLEX 07/21/23 07/21/23 Unknown History syringe ondansetron HCl 4 mg tablet 4 mg PO Q6H PRN Nausea And Vomiting 07/21/23 07/21/23 Unknown History pantoprazole 40 mg tablet,delayed 40 mg PO BID 07/21/23 07/21/23 Unknown History release phenazopyridine 95 mg tablet (Azo 95 mg PO TID 07/21/23 07/21/23 Unknown History Urinary Pain Relief) semaglutide 0.25 mg or 0.5 mg (2 0.5 mg SUBCUT Q7D 07/21/23 07/21/23 Unknown History mg/3 mL) subcutaneous pen injector (Ozempic) trazodone 50 mg tablet 50 mg PO BEDTIME 07/21/23 07/21/23 Unknown History Allergies Allergy/AdvReac Type Severity Reaction Status Date / Time No Known Allergies Allergy Verified 07/21/23 08:59 Current Medications Generic Name Dose Route Start Last Admin Trade Name Freq PRN Reason Stop Dose Admin Pantoprazole Sodium 40 mg 07/20/23 22:39 07/21/23 02:26 Pantoprazole 40 Mg Sdv IVP 40 mg Q12H LESLIE Administration PFSH Anesthesia Medical History Arthritis Chronic renal failure COPD (chronic obstructive pulmonary disease) COVID-19 Depressive disorder DM type 2 with diabetic peripheral neuropathy Essential hypertension Gastroenteritis Hematuria Hyperlipemia Neuropathy Type 2 diabetes mellitus Surgical History H/O: hysterectomy History of cholecystectomy Family History Mother Hypertension Social History Smoking and tobacco/nicotine status: former use of tobacco/nicotine Alcohol intake: never Substance/Drug Use: never Data Anesthesia 07/21/23 05:25 07/21/23 05:25 Short CBC 07/20/23 07/21/23 Range/Units 19:46 05:25 WBC 8.73 8.03 (3.29-11.43) 10^3/uL Hgb 6.60 L 7.80 L (11.27-16.99) g/dL Hct 22.7 L 26.4 L (36-47) % MCV 85.7 84.6 L (85-98) fl Plt Count 155 L 136 L (157-399) 10^3/cmm Neut % (Auto) 65.2 65.3 % Neut # (Auto) 5.69 5.24 (1.8-7.7) 10^3/uL BMP 07/20/23 07/21/23 19:46 05:25 Sodium 134 L 137 Potassium 4.7 4.4 Chloride 98 101 Carbon Dioxide 24 24 BUN 47 H 46 H Creatinine 2.1 H 1.8 H Glucose 267 H 198 H Calcium 8.8 8.9 Liver Function 07/20/23 Range/Units 19:46 Total Bilirubin 0.3 (0.15-1.2) mg/dL AST 12 (0-32) U/L ALT 9 (0-33) U/L Alkaline Phosphatase 131 H (35-105) U/L Albumin 3.6 (3.5-5.2) g/dL Blood Bank 07/20/23 20:52 Blood Type O Positive Rho(D) Type Rh positive Antibody Screen Negative Cardiac Studies: Echocardiogram 01/09/22 Cardiac Event Monitor 09/16/21
--- NOTE | 2023-07-21 09:52 | PM.CONSULT ---
Providers/Reason For Consult Consulting Physician/Specialty*: General Surgery Reason for Consult*: GI Bleeding Attending Physician: Florence Tripp MD Primary Care Provider: Dwain Rivas History of Present Illness History of Present Illness Vicki Tolbert is a 68 year old female who presents to the [facility] complaining of Gi bleeding with positive stool test and epigastric pain. patient has history of recent endoscopy for Gi bleeding in [place] but recors are not available. hemoglobin upon arrival was 6.6 and trandedc up to 7.8 with transfusion. Review of Systems General: Reports: 10 or more systems reviewed and unremarkable except in HPI and below Medications/Allergies Home Medications Medication Instructions Recorded Confirmed Last Taken Type albuterol sulfate 2.5 mg/3 mL 2.5 mg inhalation Q4H PRN 09/16/21 07/21/23 Unknown History (0.083 %) solution for nebulization Shortness Of Breath aspirin 81 mg chewable tablet 81 mg PO QAM 09/16/21 07/21/23 Unknown History (Aspirin Childrens) atorvastatin 20 mg tablet 20 mg PO BEDTIME 09/16/21 07/21/23 Unknown History gabapentin 300 mg capsule 300 mg PO BID 09/16/21 07/21/23 Unknown History ropinirole 1 mg tablet 1 mg PO BID 09/16/21 07/21/23 Unknown History acetaminophen 325 mg tablet 650 mg PO Q4H PRN Pain 10/22/21 07/21/23 Unknown History (Tylenol) magnesium hydroxide 400 mg/5 mL 30 ml PO .EVERY 3RD DAY PRN 10/22/21 07/21/23 Unknown History oral suspension (Milk of Magnesia) Constipation apixaban 5 mg tablet (Eliquis) 5 mg PO BID #180 tabs 09/30/22 07/21/23 Unknown Rx aluminum-mag hydroxide-simethicone 30 ml PO .EVERY 2 HOURS PRN 07/21/23 07/21/23 Unknown History 200 mg-200 mg-20 mg/5 mL oral susp Indigestion bisacodyl 10 mg rectal suppository 10 mg [place] .AFTER MOM IF NO BM PRN 07/21/23 07/21/23 Unknown History (Dulcolax (bisacodyl)) if tabs refused bisacodyl 5 mg tablet,delayed 20 mg PO DAILY PRN after mom if no 07/21/23 07/21/23 Unknown History release (Dulcolax (bisacodyl)) bm budesonide-formoterol HFA 160 2 puff inhalation BID 07/21/23 07/21/23 Unknown History mcg-4.5 mcg/actuation aerosol inhaler cetirizine 10 mg tablet (Zyrtec) 10 mg PO QAM 07/21/23 07/21/23 Unknown History dapagliflozin propanediol 10 mg 10 mg PO QAM 07/21/23 07/21/23 Unknown History tablet (Farxiga) ergocalciferol (vitamin D2) 1,250 50,000 unit PO Q7D 07/21/23 07/21/23 Unknown History mcg (50,000 unit) capsule furosemide 80 mg tablet (Lasix) 80 mg PO QAM 07/21/23 07/21/23 Unknown History guaifenesin 100 mg/5 mL oral liquid 100 mg PO Q6H PRN Cough 07/21/23 07/21/23 Unknown History liraglutide 0.6 mg/0.1 mL (18 mg/3 1.8 mg SUBCUT QAM 07/21/23 07/21/23 Unknown History mL) subcutaneous pen injector ([facility] 3-Dez) loperamide 2 mg tablet (Imodium See Rx Instructions .Route .COMPLEX 07/21/23 07/21/23 Unknown History A-D) magnesium citrate See Rx Instructions .Route .COMPLEX 07/21/23 07/21/23 Unknown History magnesium oxide 400 mg PO QAM 07/21/23 07/21/23 Unknown History naloxone 0.4 mg/mL injection See Rx Instructions .Route .COMPLEX 07/21/23 07/21/23 Unknown History syringe ondansetron HCl 4 mg tablet 4 mg PO Q6H PRN Nausea And Vomiting 07/21/23 07/21/23 Unknown History pantoprazole 40 mg tablet,delayed 40 mg PO BID 07/21/23 07/21/23 Unknown History release phenazopyridine 95 mg tablet (Azo 95 mg PO TID 07/21/23 07/21/23 Unknown History Urinary Pain Relief) semaglutide 0.25 mg or 0.5 mg (2 0.5 mg SUBCUT Q7D 07/21/23 07/21/23 Unknown History mg/3 mL) subcutaneous pen injector (Ozempic) trazodone 50 mg tablet 50 mg PO BEDTIME 07/21/23 07/21/23 Unknown History Allergies Allergy/AdvReac Type Severity Reaction Status Date / Time No Known Allergies Allergy Verified 07/21/23 08:59 Current Medications Generic Name Dose Route Start Last Admin Trade Name Celeste PRN Reason Stop Dose Admin Pantoprazole Sodium 40 mg 07/20/23 22:39 07/21/23 02:26 Pantoprazole 40 Mg Sdv IVP 40 mg Q12H LESLIE Administration PFSH Acute PFSH: Medical History Arthritis Chronic renal failure COPD (chronic obstructive pulmonary disease) COVID-19 Depressive disorder DM type 2 with diabetic peripheral neuropathy Essential hypertension Gastroenteritis Hematuria Hyperlipemia Neuropathy Type 2 diabetes mellitus Surgical History H/O: hysterectomy History of cholecystectomy Family History Mother Hypertension Social History Smoking and tobacco/nicotine status: former use of tobacco/nicotine Alcohol intake: never Substance/Drug Use: never Vitals/I&O/Wt Last Vital Signs Temp 97.9 F 07/21/23 08:00 Pulse 89 07/21/23 08:40 Resp 16 07/21/23 08:40 BP 160/65 07/21/23 08:00 Pulse Ox 96 07/21/23 08:40 O2 Del Method Nasal Cannula 07/21/23 08:40 O2 Flow Rate 2 07/21/23 08:40 07/20/23 07/21/23 07/21/23 22:59 06:59 14:59 Intake Total 0 / 0 350 / 350 Output Total 200 / 200 Balance 0 / 0 150 / 150 Weight last 48 hrs Weight 268 lb Weight 240 lb Physical Exam GI: OTHER: abdomen is soft, there is epigastric tenderness to palpation. Data 07/21/23 05:25 07/21/23 05:25 A&P Assessment and plan (1) GI bleeding: Plan after a complete history, physical examination and review of all available clinical data the following is my assessment. patient likely has recurrent upper GI bleeding in the setting of anticoagulant use due to Afib. I have offered diagnostic endoscopy with possible bleeding control. int he meantime patient will be initiated in high dose PPI all the risk and benefits were discussed including risk of perforation, persistent bleeding, need for surgery or embolization. patient agrees. Coding Level of Care Code 99773 Diagnoses GI bleeding K92.2
[2023-07-21] MEDS: sodium chloride 0.9% 1,000 ML 30 ML IV (10:00)
--- NOTE | 2023-07-21 10:24 | PM.MISC ---
Miscellaneous Note Purpose of Documentation: Update in patient care Note: Endoscopy done, finding difuse erosive gastritis, with stigmata of bleeding but no active bleeding. No biopsies taken during this evaluation as mucosa is irritated and patient last dose of eliquis was yesterday -Continue Pantoprazol BID 40mg for 6 weeks -Start sucralfate liquid 1gr BID for 6 weeks -Follow up as outpatient in 2 weeks -Plan to re-scope in 6 weeks, will obtain biopsies at the time -Risk of re-starting anticoagulation is higher than benefit, please keep off eliquis until next scope.
--- NOTE | 2023-07-21 11:10 | ANE.PACU2 ---
Inpatient post-anesthesia follow up: Airway intact: Yes Vital signs: Temperature 97.8 F Pulse Rate 54 Respiratory Rate 18 Blood Pressure 186/78 Pulse Oximetry 97 Oxygen Delivery Me thod Nasal Cannula Oxygen Flow Rate 2 Fraction of Inspir ed Oxygen Hydration adequate: Yes Nausea and vomiting: No Pain level: 1 Mental status: Baseline
--- NOTE | 2023-07-21 11:17 | PM.PN ---
Subjective Subjective: seen today patient going for egd offers no complaints at this time Vitals/I&O/Wt Last Vital Signs Temp 97.0 F L 07/21/23 11:11 Pulse 63 07/21/23 11:10 Resp 17 07/21/23 11:10 BP 173/80 07/21/23 11:10 Pulse Ox 99 07/21/23 11:10 O2 Del Method Nasal Cannula 07/21/23 11:10 O2 Flow Rate 2 07/21/23 11:10 07/20/23 07/21/23 07/21/23 22:59 06:59 14:59 Intake Total 0 / 0 350 / 350 400 / 400 Output Total 200 / 200 0 / 0 Balance 0 / 0 150 / 150 400 / 400 Weight last 48 hrs Weight 121.563 kg Weight 108.862 kg Physical Exam Narrative: General: Patient is awake. Head: Normocephalic. Atraumatic. EOM intact. Cardiovascular: RRR.No murmurs. Non-pitting lower extremity edema. Lungs: Clear to auscultation, no use of accessory muscles, no crackles or wheezes. Abdomen: Normal bowel sounds, abdomen soft, epigastric tenderness present to palpation Extremities: No cyanosis or clubbing. Neurological: Moves all 4 extremities Data 07/21/23 05:25 07/21/23 05:25 A&P Assessment and plan (1) Anemia: Acute on chronic anemia secondary to acute GI bleed Obtain records from [facility], likely will have to be in the morning Hold apixaban Hold aspirin No NSAIDs Start pantoprazole 40 mg IVP Q12H NPO General surgery consulted Trend hemoglobin Transfusing pRBC, monitor for fluid overload GOING FOR ENDOSCOPY TODAY Qualifiers: Anemia type: unspecified type Qualified Code(s): D64.9 - Anemia, unspecified (2) Essential hypertension: BP is currently elevated, however at risk of hypotension w/ GIB Monitor BP closely (3) COPD (chronic obstructive pulmonary disease): Not in exacerbation Breathing treatments as needed (4) Type 2 diabetes mellitus: Hold home metformin Formulatory long acting insulin at reduced rate SSI (5) Atrial fibrillation: Hold anticoagulation due to GI bleeding Telemetry monitoring for GIB Not on rate control agent (6) Chronic kidney disease: Baseline Cr is 2.0 Monitor Qualifiers: Chronic kidney disease stage: unspecified stage Qualified Code(s): N18.9 - Chronic kidney disease, unspecified Plan DVT ppx: SCD Attestations Medical Necessity Statement*: EGD today, possible dc in next 24-48 hours. Diagnoses Anemia D64.9 Anemia type: unspecified type Essential hypertension I10 COPD (chronic obstructive pulmonary disease) J44.9 Type 2 diabetes mellitus E11.9 Atrial fibrillation I48.91 Chronic kidney disease N18.9 Chronic kidney disease stage: unspecified stage
[2023-07-21] MEDS: acetaminophen 325 mg Tablet 650 MG PO (12:08)
[2023-07-21 12:38] LABS: Glucose Point of Care 211 mg/dL (70-110)
[2023-07-21] MEDS: sucralfate 1 gm/10 mL Oral Liq UDC PO ×2 (17:03→20:44)
[2023-07-21] MEDS: ropinirole 1 mg Tablet PO (17:04)
[2023-07-21] MEDS: gabapentin 300 mg Capsule PO (17:04)
[2023-07-21] MEDS: insulin lispro 100 unit/1 mL SUBCUT (17:11)
[2023-07-21 17:49] LABS: Glucose Point of Care 207 mg/dL (70-110)
[2023-07-21 18:49] LABS: Basophils # 0.1 10^3/uL (0.0-0.1); Basophils % 0.8 %; Eosinophils # 0.3 10^3/uL (0.0-0.8); Eosinophils % 3.1 %; Hematocrit 25.8 % (36-47); Lymphocytes # 1.5 10^3/uL (0.8-4.8); Mean Corpuscular HGB Conc 30.2 g/dL (30-55); Mean Corpuscular Hemoglobin 25.6 pg (27-33); Mean Corpuscular Volume 84.6 fl (85-98); Mean Platelet Volume 10.8 fL (7.4-10.4); Monocytes # 0.9 10^3/uL (0.2-0.9); Monocytes % 9.6 %; Neutrophils # 6.04 10^3/uL (1.8-7.7); Neutrophils % 68.4 %; Nucleated Red Blood Cells % 0 %; Platelet Count 131 10^3/cmm (157-399); Red Blood Count 3.05 10^6/uL (3.85-5.65); Red Cell Distribution Width 18.7 % (12.1-15.1); White Blood Count 8.83 10^3/uL (3.29-11.43)
[2023-07-21] MEDS: atorvastatin 40 mg Tablet 20 MG PO (20:43)
[2023-07-21 21:11] LABS: Glucose Point of Care 194 mg/dL (70-110)
[2023-07-21] MEDS: insulin glargine 100 units/1 mL 20 UNIT SUBCUT (21:36)
[2023-07-22] VITALS: BP 133/84; PULSE 60; RESP 18; TEMP 36.7; O2SAT 96
[2023-07-22] MEDS: pantoprazole 40 mg SDV IVP (01:36)
[2023-07-22 04:00] VITALS: BP 134/75; PULSE 61; RESP 17; TEMP 36.7; O2SAT 97
[2023-07-22 05:14] LABS: Basophils # 0.1 10^3/uL (0.0-0.1); Basophils % 0.8 %; Eosinophils # 0.3 10^3/uL (0.0-0.8); Eosinophils % 3.6 %; Hematocrit 27.8 % (36-47); Lymphocytes # 1.8 10^3/uL (0.8-4.8); Mean Corpuscular HGB Conc 29.1 g/dL (30-55); Mean Corpuscular Hemoglobin 25.1 pg (27-33); Mean Corpuscular Volume 86.1 fl (85-98); Mean Platelet Volume 11.1 fL (7.4-10.4); Monocytes # 1.1 10^3/uL (0.2-0.9); Monocytes % 11.9 %; Neutrophils # 5.54 10^3/uL (1.8-7.7); Neutrophils % 62.7 %; Nucleated Red Blood Cells % 0 %; Platelet Count 148 10^3/cmm (157-399); Red Blood Count 3.23 10^6/uL (3.85-5.65); Red Cell Distribution Width 18.7 % (12.1-15.1); White Blood Count 8.84 10^3/uL (3.29-11.43)
[2023-07-22 05:35] LABS: Anion Gap 17.1 (5-19); Blood Urea Nitrogen 33 mg/dL (8-23); Calcium 9.2 mg/dL (8.5-10.5); Carbon Dioxide 22 mmol/L (22-29); Chloride 102 mmol/L (98-107); Glomerular Filtration Rate 31.9 mL/min (90-130); Glucose 150 mg/dL (65-115); Osmolality Calculated 294 mOsm/kg (285-295); Potassium 4.1 mmol/L (3.5-5.1); Sodium 137 mmol/L (136-145)
[2023-07-22 05:38] VITALS: PULSE 56
[2023-07-22] MEDS: FUROsemide 40 mg Tablet 80 MG PO (06:14)
[2023-07-22] MEDS: sucralfate 1 gm/10 mL Oral Liq UDC PO (06:15)
[2023-07-22 06:36] LABS: Glucose Point of Care 160 mg/dL (70-110)
[2023-07-22 08:27] VITALS: PULSE 56; RESP 16; O2SAT 93
[2023-07-22] MEDS: ropinirole 1 mg Tablet PO (08:36)
[2023-07-22] MEDS: gabapentin 300 mg Capsule PO (08:36)
[2023-07-22] MEDS: insulin lispro 100 unit/1 mL SUBCUT (08:36)
[2023-07-22 10:54] LABS: SARS Covid-2 Antigen negative (Negative)
--- NOTE | 2023-07-22 11:03 | PM.DCS ---
Discharge Providers Date of Admission: 07/20/23 21:18 Date of Discharge: July 22, 2023 Attending Provider at Admission: Curt Randhawa MD Attending Provider at Discharge: Florence Tripp MD Primary Care Provider: Dwain Rivas Diagnoses at Discharge Discharge Diagnosis (1) Anemia: Status: Inactive Qualifiers: Anemia type: unspecified type Qualified Code(s): D64.9 - Anemia, unspecified (2) Essential hypertension: Status: Acute (3) COPD (chronic obstructive pulmonary disease): Status: Acute (4) Type 2 diabetes mellitus: Status: Acute (5) Atrial fibrillation: Status: Acute (6) Chronic kidney disease: Status: Inactive Qualifiers: Chronic kidney disease stage: unspecified stage Qualified Code(s): N18.9 - Chronic kidney disease, unspecified Reason for Visit Reason for Visit: positive hemocult Hospital Course Hospital Course Patient was admitted for acute GI bleed. Hemoglobin 6.6 on admission. She received 1 unit of packed RBCs. Underwent EGD Endoscopy done, finding difuse erosive gastritis, with stigmata of bleeding but no active bleeding. No biopsies taken during this evaluation as mucosa is irritated and patient last dose of eliquis was yesterday -Continue Pantoprazol BID 40mg for 6 weeks -Start sucralfate liquid 1gr BID for 6 weeks -Follow up as outpatient in 2 weeks -Plan to re-scope in 6 weeks, will obtain biopsies at the time -Risk of re-starting anticoagulation is higher than benefit, please keep off eliquis until next scope. I discussed all of the above with patient's daughter on video call in presence of the patient and explained the risks and benefits of stopping Eliquis at this time. I also discussed with her the risk of stroke due to stopping Eliquis and daughter said she understood. The daughter also said that patient cannot keep coming to the hospital for blood transfusion. She agreed that stopping Eliquis would be a better option at this point. Patient's hemoglobin is stable at 8.2 today. He does not drop further.. Patient will be sent back to skilled nursing in stable condition. Physical Exam Narrative: General: Patient is awake. Head: Normocephalic. Atraumatic. EOM intact. Cardiovascular: RRR.No murmurs. Non-pitting lower extremity edema. Lungs: Clear to auscultation, no use of accessory muscles, no crackles or wheezes. Abdomen: Normal bowel sounds, abdomen soft, epigastric tenderness present to palpation slightly better than yesterday Extremities: No cyanosis or clubbing. Neurological: Moves all 4 extremities Discharge Data Studies Completed and Pending Completed Studies During Hospitalization Category Date Time Status XR abdomen 1V* [id number] Stat Exams 07/21/23 06:56 Completed XR chest 1V [id number] Stat Exams 07/21/23 06:56 Completed Pending at discharge Category Date Time Status Basic Metabolic Panel AM LABS Lab 07/22/23 04:00 Ordered Complete Blood Count w/Auto AM LABS Lab 07/22/23 04:00 Ordered Laboratory Results WBC 8.83 10^3/uL (3.29-11.43) 07/21/23 18:36 RBC 3.05 10^6/uL (3.85-5.65) L 07/21/23 18:36 Hgb 7.80 g/dL (11.27-16.99) L 07/21/23 18:36 Hct 25.8 % (36-47) L 07/21/23 18:36 MCV 84.6 fl (85-98) L 07/21/23 18:36 MCH 25.6 pg (27-33) L 07/21/23 18:36 MCHC 30.2 g/dL (30-55) 07/21/23 18:36 RDW 18.7 % (12.1-15.1) H 07/21/23 18:36 Plt Count 131 10^3/cmm (157-399) L 07/21/23 18:36 MPV 10.8 fL (7.4-10.4) H 07/21/23 18:36 Neut % (Auto) 68.4 % 07/21/23 18:36 Lymph % (Auto) 17.0 % 07/21/23 18:36 Person % (Auto) 9.6 % 07/21/23 18:36 Eos % (Auto) 3.1 % 07/21/23 18:36 Baso % (Auto) 0.8 % 07/21/23 18:36 Neut # (Auto) 6.04 10^3/uL (1.8-7.7) 07/21/23 18:36 Lymph # (Auto) 1.5 10^3/uL (0.8-4.8) 07/21/23 18:36 Person # (Auto) 0.9 10^3/uL (0.2-0.9) 07/21/23 18:36 Eos # (Auto) 0.3 10^3/uL (0.0-0.8) 07/21/23 18:36 Baso # (Auto) 0.1 10^3/uL (0.0-0.1) 07/21/23 18:36 Nucleated RBC % (auto) 0 % 07/21/23 18:36 Nucleated RBCs # 0.0 /100WBC 07/21/23 18:36 Sodium 137 mmol/L (136-145) 07/21/23 05:25 Potassium 4.4 mmol/L (3.5-5.1) 07/21/23 05:25 Chloride 101 mmol/L (98-107) 07/21/23 05:25 Carbon Dioxide 24 mmol/L (22-29) 07/21/23 05:25 Anion Gap 16.4 (5-19) 07/21/23 05:25 BUN 46 mg/dL (8-23) H 07/21/23 05:25 Creatinine 1.8 mg/dL (0.5-0.9) H 07/21/23 05:25 GFR Calculation 27.8 mL/min (90-130) L 07/21/23 05:25 Glucose 198 mg/dL (65-115) H 07/21/23 05:25 POC Glucose 207 mg/dL (70-110) H 07/21/23 16:37 Calculated Osmolality 301 mOsm/kg (285-295) H 07/21/23 05:25 Calcium 8.9 mg/dL (8.5-10.5) 07/21/23 05:25 Magnesium 2.6 mg/dL (1.7-2.3) H 07/21/23 05:25 Total Bilirubin 0.3 mg/dL (0.15-1.2) 07/20/23 19:46 AST 12 U/L (0-32) 07/20/23 19:46 ALT 9 U/L (0-33) 07/20/23 19:46 Alkaline Phosphatase 131 U/L (35-105) H 07/20/23 19:46 Total Protein 6.7 g/dL (6.6-8.7) 07/20/23 19:46 Albumin 3.6 g/dL (3.5-5.2) 07/20/23 19:46 Globulin 3.1 g/dL (1.3-4.6) 07/20/23 19:46 Blood Type O Positive 07/20/23 20:52 Rho(D) Type Rh positive 07/20/23 20:52 Antibody Screen Negative 07/20/23 20:52 Crossmatch See Detail 07/20/23 20:52 Vitals Last Vital Signs Temp 97.8 F 07/21/23 16:00 Pulse 59 L 07/21/23 16:00 Resp 16 07/21/23 16:00 BP 153/74 07/21/23 16:00 Pulse Ox 98 07/21/23 16:00 O2 Del Method Nasal Cannula 07/21/23 16:00 O2 Flow Rate 2 07/21/23 11:10 Discharge Plan Discharge Patient Disposition: Xfer SNF Condition: Stable Prescriptions: New sucralfate 100 mg/mL Suspension 1 g PO AC&BEDTIME 42 Days Qty: 600 0RF Continued albuterol sulfate 2.5 mg /3 mL (0.083 %) solution for nebulization 2.5 mg inhalation Q4H PRN (Reason: Shortness Of Breath) ropinirole 1 mg tablet 1 mg PO BID atorvastatin 20 mg tablet 20 mg PO BEDTIME gabapentin 300 mg capsule 300 mg PO BID magnesium hydroxide [Milk of Magnesia] 400 mg/5 mL suspension 30 ml PO .EVERY 3RD DAY PRN (Reason: Constipation) acetaminophen [Tylenol] 325 mg tablet 650 mg PO Q4H PRN (Reason: Pain) trazodone 50 mg Tablet 50 mg PO BEDTIME Zyrtec 10 mg Tablet 10 mg PO QAM Zofran 4 mg Tablet 4 mg PO Q6H PRN (Reason: Nausea And Vomiting) Imodium A-D 2 mg Tablet See Rx Instructions .ROUTE .COMPLEX Rx Instructions: 2 mg orally after each loose stool as needed Robitussin 100 mg/5 mL Liquid 100 mg PO Q6H PRN (Reason: Cough) Lasix 80 mg Tablet 80 mg PO QAM Azo Urinary Pain Relief 95 mg Tablet 95 mg PO TID Dulcolax (bisacodyl) 10 mg Suppository 10 mg [place] .AFTER MOM IF NO BM PRN (Reason: if tabs refused) magnesium citrate Solution See Rx Instructions .ROUTE .COMPLEX Rx Instructions: 10 oz po after dulcolax if no bm prn Dulcolax (bisacodyl) 5 mg Tablet,Delayed Release (Dr/Ec) 20 mg PO DAILY PRN (Reason: after mom if no bm) ergocalciferol (vitamin D2) 1,250 mcg (50,000 unit) capsule 50,000 unit PO Q7D Mylanta 200-200-20 mg/5 mL Suspension 30 ml PO .EVERY 2 HOURS PRN (Reason: Indigestion) naloxone 0.4 mg/mL Syringe See Rx Instructions .ROUTE .COMPLEX Rx Instructions: use as directed budesonide-formoterol 160-4.5 mcg/actuation Hfa Aerosol Inhaler 2 puff INHALATION BID Victoza 3-Dez 0.6 mg/0.1 mL (18 mg/3 mL) pen injector 1.8 mg SUBCUT QAM Farxiga 10 mg Tablet 10 mg PO QAM magnesium oxide 400 mg magnesium Tablet 400 mg PO QAM Ozempic 0.25 mg or 0.5 mg (2 mg/3 mL) Pen Injector 0.5 mg SUBCUT Q7D Rx Instructions: on sat pantoprazole 40 mg tablet,delayed release (DR/EC) 40 mg PO BID 42 Days Qty: 84 0RF Held aspirin [Aspirin Childrens] 81 mg tablet,chewable 81 mg PO QAM Hold Instructions: Hold till next EGD Eliquis 5 mg tablet 5 mg PO BID Qty: 180 3RF Hold Instructions: hold till next EGD Discharge Orders: Discharge Order (Routine); Ordered 07/22/23 Ordered By: Florence Tripp Other Ambulatory Orders: Complete Blood Count w/Auto (Routine) Timeframe: 1 Week Location: Determined by Patient Ordered By: Florence Tripp Referrals: [facility] [Outside] Dwain Rivas [Primary Care Provider] - Marvel Stratton MD [Physician] - 6 Weeks Patient Instructions: GI Discharge Instructions, Opioid Safety Discharge Attestations Time Spent in Discharge Care*: greater than 30 min Quality Metrics Clinical Quality Measures [ No reported AMI, CVA or VTE this stay] Coding Level of Care Code 85025 Total time (in minutes) for Discharge: 40 Diagnoses Anemia D64.9 Anemia type: unspecified type Essential hypertension I10 COPD (chronic obstructive pulmonary disease) J44.9 Type 2 diabetes mellitus E11.9 Atrial fibrillation I48.91 Chronic kidney disease N18.9 Chronic kidney disease stage: unspecified stage
--- NOTE | 2023-07-22 11:24 | PC.NURSE ---
This nurse gave report to JUAN F Freeman at [facility] via phone at 1124am. 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
[2023-07-22 11:30] LABS: Glucose Point of Care 139 mg/dL (70-110)
== END 2023-07-22 12:00 | disposition skilled nursing facility (03) ==
LOC: ER 21:04 → MEDSURG 23:39
PROVIDERS: Surgery; Admitting Provider Internal Medicine; Emergency Provider Family Medicine; PCP Family Medicine; Visit Provider Internal Medicine
PROC: 0DJ08ZZ Inspection of Upper Intestinal Tract, Via Natural or Artificial Opening Endoscopic (ICD-10-PCS; CPT 43235; principal; 2023-07-21 11:50)
DX: D62 Acute posthemorrhagic anemia (principal); J44.9 Chronic obstructive pulmonary disease, unspecified; I48.91 Unspecified atrial fibrillation; E11.22 Type 2 diabetes mellitus with diabetic chronic kidney disease; I12.9 Hypertensive chronic kidney disease with stage 1 through stage 4 chronic kidney disease, or unspecified chronic kidney disease; N18.9 Chronic kidney disease, unspecified; E78.5 Hyperlipidemia, unspecified; Z87.891 Personal history of nicotine dependence; Z79.4 Long term (current) use of insulin; E11.42 Type 2 diabetes mellitus with diabetic polyneuropathy
CPT/HCPCS: 36415; 36416; 36430; 43235; 71045; 74018; 80048; 80053; 82962; 83735; 85025; 86850; 86900; 86920; 87426; 93005; 96372; 96374; 99285; C9113; G0378; J0330; J1815; J2704; J7030; P9016

== ENCOUNTER → 2024-01-28 15:02 | Outpatient (BNVA) | payer MEDICARE, MEDICAID, SELFPAY | PROVIDERS: PCP Family Medicine; Visit Provider Internal Medicine | DX: I12.9 Hypertensive chronic kidney disease with stage 1 through stage 4 chronic kidney disease, or unspecified chronic kidney disease (principal); E11.22 Type 2 diabetes mellitus with diabetic chronic kidney disease; N18.9 Chronic kidney disease, unspecified; J44.9 Chronic obstructive pulmonary disease, unspecified; E78.5 Hyperlipidemia, unspecified; I48.91 Unspecified atrial fibrillation; E11.40 Type 2 diabetes mellitus with diabetic neuropathy, unspecified; Z79.4 Long term (current) use of insulin | CPT/HCPCS: 99214 ==

== ENCOUNTER → 2024-07-27 14:51 | Outpatient (BNVA) | payer MEDICARE, MEDICAID, SELFPAY | PROVIDERS: PCP Family Medicine; Visit Provider Internal Medicine | DX: I10 Essential (primary) hypertension (principal); J44.9 Chronic obstructive pulmonary disease, unspecified; E78.5 Hyperlipidemia, unspecified; I48.91 Unspecified atrial fibrillation; E11.42 Type 2 diabetes mellitus with diabetic polyneuropathy; Z79.84 Long term (current) use of oral hypoglycemic drugs; Z87.891 Personal history of nicotine dependence | CPT/HCPCS: 99213 ==